=== PATIENT | male | born 1955 | race Caucasian/White ===

== ENCOUNTER 2022-09-29 10:25 | Emergency (ER) | payer OTHER, SELFPAY ==
[2022-09-29 10:32] VITALS: BP 186/66; PULSE 63; RESP 16; TEMP 36.1; O2SAT 99; BMI 25.1
[2022-09-29 10:43] VITALS: BP 178/89; PULSE 62; RESP 14; TEMP 35.9; O2SAT 99
[2022-09-29] MEDS: Acetaminophen 325 MG TABLET 975 MG PO (12:21)
[2022-09-29] MEDS: Diphth,Pertus(ACell),Tet Adult 0.5 ML SYRINGE IM (12:21)
[2022-09-29 12:28] VITALS: BP 186/93; PULSE 61; RESP 14; TEMP 35.9; O2SAT 100
[2022-09-29 12:33] LABS: IDNOW Serial# BCCEAD1C; Influenza A Negative (Negative)
[2022-09-29 12:34] LABS: Influenza B2 Negative (Negative)
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
[2022-09-29 13:05] VITALS: BP 178/91; PULSE 58; RESP 16; TEMP 35.9; O2SAT 100
[2022-09-29] MEDS: Lidocaine HCl 1 % MPF 2 ML VIAL INFILTRATI ×2 (13:06→13:07)
== END 2022-09-29 13:22 | disposition home or self-care (01) ==
PROVIDERS: Physician Assistant Medical; Emergency Provider Emergency Medicine Emergency Medical Services; PCP Internal Medicine
DX: S01.112A Laceration without foreign body of left eyelid and periocular area, initial encounter (principal); S30.811A Abrasion of abdominal wall, initial encounter; I10 Essential (primary) hypertension; V43.52XA Car driver injured in collision with other type car in traffic accident, initial encounter; Y93.9 Activity, unspecified; Y92.410 Unspecified street and highway as the place of occurrence of the external cause; Y99.9 Unspecified external cause status; Z20.822 Contact with and (suspected) exposure to COVID-19; Z79.899 Other long term (current) drug therapy
CPT/HCPCS: 12051; 87502; 90471; 90715; 99284